=== PATIENT | female | born 1995 | race Caucasian/White ===

== ENCOUNTER 2020-08-18 15:54 | Emergency (ER) | payer OTHER ==
[~2020-08-18] VITALS: Ht 157.5 cm; Wt 106.6 kg
[2020-08-18 16:02] VITALS: Ht 157.5 cm; Wt 106.6 kg
[2020-08-18 16:37] VITALS: BP 123/61
== END 2020-08-18 16:37 | disposition home or self-care (01) ==
LOC: ED 15:54
DX: F41.9 Anxiety disorder, unspecified (principal)